=== PATIENT | female | born 1985 | race Caucasian/White ===

== ENCOUNTER 2016-11-02 10:41 | Emergency (ER) | payer MEDICAID ==
[~2016-11-02] VITALS: Ht 167.6 cm; Wt 61.6 kg
[~2016-11-02 10:41] MED LIST: BUSP7.5T3 PO; ESCI10TA10 PO; FLUO20CA19 PO; LORA-446 PO; TRAZ100T15 PO; WARF5TAB PO
[2016-11-02 10:42] VITALS: BP 155/105
[2016-11-02] MEDS ORDERED: LEVO50TA PO (10:56)
== END 2016-11-02 11:35 | disposition home or self-care (01) ==
LOC: ED 11:34
DX: J00 Acute nasopharyngitis [common cold] (principal); B00.9 Herpesviral infection, unspecified; F41.1 Generalized anxiety disorder; F15.10 Other stimulant abuse, uncomplicated
CPT/HCPCS: 71020; 99284

== ENCOUNTER 2020-02-06 14:53 | Emergency (ER) | payer MEDICAID ==
[~2020-02-06] VITALS: Ht 167.6 cm; Wt 61.5 kg
[~2020-02-06 14:53] MED LIST changes: -BUSP7.5T3 PO; +BUSP7.5T5 PO; +LEVO50TA PO; +TRAZ-175 PO; -TRAZ100T15 PO; -WARF5TAB PO; +WARF5TAB2 PO
[2020-02-06 14:56] VITALS: BP 121/81
[2020-02-06] MEDS ORDERED: LORazepam 1MG TABLET ONE (15:53)
[2020-02-06] MEDS ORDERED: LORazepam 1MG TABLET PO ONE (16:00)
[2020-02-06 18:49] LABS: BASOPHILS # (AUTO) 0.04 x10^3/uL (0-0.1); BASOPHILS % (AUTO) 1 % (0-1); EOSINOPHILS # (AUTO) 0.06 x10^3/uL (0-0.4); EOSINOPHILS % (AUTO) 1 % (1-7); LYMPHOCYTES # (AUTO) 2.28 x10^3/uL (1-3.4); LYMPHOCYTES % (AUTO) 28 % (22-44); MD NO; MEAN CORPUSCULAR HEMOGLOBIN 30.3 pg (27.0-34.8); MEAN CORPUSCULAR HGB CONC 32.9 g/dL (32.4-35.8); MEAN CORPUSCULAR VOLUME 92.2 fL (80-100); MEAN PLATELET VOLUME 7.3 fL (7.4-10.4); MONOCYTES # (AUTO) 0.51 x10^3/uL (0.2-0.8); MONOCYTES % (AUTO) 6 % (2-9); NEUTROPHILS # (AUTO) 5.16 x10^3/uL (1.8-6.8); NEUTROPHILS % (AUTO) 64 % (42-75); PLATELET COUNT 352 x10^3/uL (130-400); RED BLOOD COUNT 4.32 x10^6/uL (3.82-5.3); RED CELL DISTRIBUTION WIDTH 13.2 % (9.6-15.2)
[2020-02-06 18:50] LABS: ALANINE AMINOTRANSFERASE 28 U/L (12-78); ALBUMIN 3.3 g/dL (3.4-5.0); ANION GAP 6 mmol/L (5-15); CALCIUM 8.5 mg/dL (8.5-10.1); CHLORIDE 108 mmol/L (98-107); CREATININE 0.58 mg/dL (0.55-1.02)
[2020-02-06 18:51] LABS: SALICYLATE LEVEL < 1.7 mg/dL (2.8-20.0)
[2020-02-06 18:55] LABS: ALKALINE PHOSPHATASE 75 U/L (45-117); BILIRUBIN,TOTAL 0.1 mg/dL (0.2-1.0); TOTAL PROTEIN 6.7 g/dL (6.4-8.2)
--- NOTE | 2020-02-06 18:57 | NUR ---
PT CAME IN WANTING TO GET HELP FOR HER IV DRUG ADDICTION TO [facility] AND [facility]PIATES. SHE STATES SHE HAS BEEN HAVING TROUBLE GETTING ADMITTED TO A [facility]. SHE IS ACCOMPANIED BY HER BOYFRIEND.
[2020-02-06 19:04] LABS: MICROSCOPIC INDICATED
[2020-02-06 19:15] LABS: BARBITURATE SCREEN, URINE Negative (Negative); BENZODIAZEPINE SCREEN, URINE Negative (Negative); CANNABINOID SCREEN, URINE Positive (Negative); COCAINE SCREEN, URINE Negative (Negative); METHADONE SCREEN, URINE Negative (Negative); OPIATE SCREEN, URINE Negative (Negative)
[2020-02-06 19:17] LABS: AMPHETAMINE SCREEN, URINE Negative (Negative)
--- NOTE | 2020-02-06 20:30 | NUR ---
PT WILL NOT BE ACCEPTED BY [facility]. PT LEFT AMA LAST WEEK AND DR Lemos DENIED ADMISSION
== END 2020-02-06 20:50 | disposition home or self-care (01) ==
LOC: ED 17:03
DX: F15.10 Other stimulant abuse, uncomplicated (principal); Z72.9 Problem related to lifestyle, unspecified; Z86.711 Personal history of pulmonary embolism
CPT/HCPCS: 36415; 80053; 80307; 81001; 84703; 85025; 99283